=== PATIENT | male | born 1965 | race Two or more races ===

== ENCOUNTER 2020-12-17 03:54 | Emergency (ER) | payer MEDICAID, OTHER ==
[~2020-12-17] VITALS: Ht 165.1 cm; Wt 90.7 kg
[2020-12-17] MEDS ORDERED: LORazepam 2MG/ML-1ML VIAL IV ONE (04:15)
[2020-12-17] MEDS ORDERED: SODIUM CHLORIDE 0.9% 1,000 ML IV ONE ×2 (04:15)
[2020-12-17 04:25] VITALS: BP 154/93
== END 2020-12-17 06:34 | disposition home or self-care (01) ==
LOC: EDBD 03:54 → ER 03:54
DX: F41.9 Anxiety disorder, unspecified (principal); T39.1X5A Adverse effect of 4-Aminophenol derivatives, initial encounter; G89.29 Other chronic pain; M54.9 Dorsalgia, unspecified; Y92.89 Other specified places as the place of occurrence of the external cause
CPT/HCPCS: 96360; 99283; J7030

== ENCOUNTER 2021-05-06 08:24 | Emergency (ER) | payer MEDICAID ==
[~2021-05-06] VITALS: Ht 170.2 cm; Wt 90.7 kg
[2021-05-06] MEDS ORDERED: KETOROLAC TROMETH 30 MG/ML 1ML VIAL IV ONE (09:00)
[2021-05-06] MEDS ORDERED: METOCLOPRAMIDE HCL 5MG/ml INJ 2ml VIAL IV ONE (09:00)
[2021-05-06] MEDS ORDERED: SODIUM CHLORIDE 0.9% 1,000 ML IV ONE (09:00)
[2021-05-06] MEDS ORDERED: SODIUM CHLORIDE 0.9% 500 ML IVB ONE (09:00)
[2021-05-06 09:16] LABS: Basophils # (auto) 0 10 ^3/uL (0-0.2); Basophils % (auto) 0.5 % (0.0-2.0); Eosinophils # (auto) 0.3 10 ^3/uL (0-0.8); Eosinophils % (auto) 3.8 % (0.0-7.0); Hematocrit 43.9 % (41.0-53.0); Hemoglobin 15.2 g/dL (13.5-17.5); Lymphocytes # (auto) 2.5 10 ^3/uL (0.4-5.4); Lymphocytes % (auto) 29.9 % (10.0-50.0); Mean Corpuscular Hemoglobin 31.4 pg (28.0-32.0); Mean Corpuscular Hgb Conc. 34.7 g/dL (32.0-36.0); Mean Corpuscular Volume 90.3 fL (80.0-100.0); Monocytes # (auto) 0.5 10 ^3/uL (0-1.3); Monocytes % (auto) 6.5 % (0.0-12.0); Neutrophils # (auto) 4.9 10 ^3/uL (1.6-8.6); Neutrophils % (auto) 59.3 % (37.0-80.0); Nucleated Red Blood Cells % 0.1 %; Red Blood Cells 4.86 10^6/uL (4.5-5.90); Red Cell Distribution Width 12.6 % (11.8-14.3); White Blood Cell 8.2 10^3/uL (4.4-10.8)
[2021-05-06 09:19] LABS: Albumin 3.7 g/dL (3.4-5.0); Anion Gap 10 (5-15); Blood Urea Nitrogen 15 mg/dL (7-18); Calcium 8.5 mg/dL (8.5-10.1); Carbon Dioxide 25 mmol/L (21-32); Chloride 102 mmol/L (98-107); Glucose 116 mg/dL (74-106); Magnesium 2.6 mg/dL (1.6-2.6); Potassium 3.8 mmol/L (3.5-5.1); Sodium 137 mmol/L (136-145)
[2021-05-06 09:20] LABS: Alanine Aminotransferase 35 U/L (16-61); Aspartate Aminotransferase 30 U/L (15-37); BUN/Creatinine Ratio 16.9; GFR African American 113 mL/min; GFR Non-African American 94 mL/min
[2021-05-06 09:25] LABS: Alkaline Phosphatase 97 U/L (45-117); Total Protein 7.9 g/dL (6.4-8.2)
[2021-05-06 11:48] LABS: Urine Bacteria NONE SEEN /hpf (None Seen); Urine Blood Negative /uL (Negative); Urine Hyaline Cast FEW /lpf (0 - 2); Urine Specific Gravity 1.017 (1.001-1.035); Urine WBC 1 /hpf (0 - 3)
[2021-05-06 13:44] VITALS: BP 152/94
== END 2021-05-06 13:47 | disposition home or self-care (01) ==
LOC: ER 08:24
DX: K76.0 Fatty (change of) liver, not elsewhere classified (principal); K80.20 Calculus of gallbladder without cholecystitis without obstruction
CPT/HCPCS: 36415; 74176; 80053; 81001; 83690; 83735; 84484; 85025; 93005; 96361; 96374; 96375; 99285; J1885; J2765; J7030; J7040

== ENCOUNTER 2022-01-21 08:52 | Emergency (ER) | payer MEDICAID | END 2022-01-21 09:16 | disposition left against medical advice (07) | LOC: ER 08:52 | DX: R10.9 Unspecified abdominal pain (principal); Z53.21 Procedure and treatment not carried out due to patient leaving prior to being seen by health care provider ==